=== PATIENT | female | born 1940 | race Caucasian/White ===

== ENCOUNTER 2021-09-25 11:01 | Emergency (ER) | payer OTHER ==
[2021-09-25 11:07] VITALS: BP 145/73; PULSE 53; TEMP 100.1; BMI 25.7
[2021-09-25] MEDS ORDERED: SOTROVIMAB 500 MG in SODIUM CHLORIDE 100 ML IVPB ONE (11:39)
== END 2021-09-25 16:23 | disposition home or self-care (01) ==
LOC: JCOVINFU 11:01
PROC: 3E033GC Introduction of Other Therapeutic Substance into Peripheral Vein, Percutaneous Approach (ICD-10-PCS; principal; 2021-09-25)
DX: U07.1 COVID-19 (principal)
CPT/HCPCS: 99284-25; Q0247

== ENCOUNTER 2022-09-12 17:14 | Emergency (ER) | payer BC, OTHER ==
[2022-09-12 17:28] VITALS: BP 168/86; PULSE 68; RESP 16; TEMP 97.9; BMI 24.2
[2022-09-12 21:11] LABS: BASO % 0.5 % (0-2.0); EOS % 1.7 % (0-4.5); HEMATOCRIT 41.7 % (32.4-45.2); HEMOGLOBIN 13.7 GM/dL (10.7-15.3); LYMPH % 20.8 % (8-40); MCH 28.7 pg (25.7-33.7); MCHC 32.9 g/dl (32.0-36.0); MEAN CELL VOLUME 87.2 fl (80-96); MEAN PLT VOLUME 8.8 fl (7.5-11.1); MONO % 6.5 % (3.8-10.2); NEUT % 70.5 % (42.8-82.8); PLATELET COUNT 221 10^3/uL (134-434); RBC 4.79 M/mm3 (3.60-5.2); RDW 13.8 % (11.6-15.6); WHITE BLOOD COUNT 9.1 K/mm3 (4.0-10.0)
[2022-09-12] MEDS ORDERED: ACETAMINOPHEN 325 MG TABLET (FP) PO ONE (21:14)
[2022-09-12 21:22] LABS: INR 1.09 (0.83-1.09); PROTHROMBIN TIME (PATIENT) 12.6 SEC (9.7-13.0)
[2022-09-12 21:29] LABS: CALCIUM 9.3 mg/dL (8.5-10.1)
[2022-09-12 21:30] LABS: BLOOD UREA NITROGEN 24.1 mg/dL (7-18)
[2022-09-12 21:33] LABS: CREATININE 0.8 mg/dL (0.55-1.3)
== END 2022-09-13 00:48 | disposition home or self-care (01) ==
LOC: JER 17:14
PROC: 2W3CX1Z Immobilization of Right Lower Arm using Splint (ICD-10-PCS; principal; 2022-09-12)
DX: S52.501A Unspecified fracture of the lower end of right radius, initial encounter for closed fracture (principal); S52.251A Displaced comminuted fracture of shaft of ulna, right arm, initial encounter for closed fracture; W01.0XXA Fall on same level from slipping, tripping and stumbling without subsequent striking against object, initial encounter
CPT/HCPCS: 36415; 73110-TC-RT-FY; 73130-TC-RT-FY; 80048; 84484; 85025; 85610; 93005; 93010; 99285-25